=== PATIENT | female | born 1970 | race Caucasian/White ===

== ENCOUNTER 2017-11-01 10:02 | Emergency (ER) | payer OTHER ==
[~2017-11-01] VITALS: Ht 152.4 cm; Wt 99.8 kg
[~2017-11-01 10:02] MED LIST: AMBIEN5 MG PO; DICYCLOMINE HCL10 MG PO; ESTRADIOL1 MG PO; OXYBUTYNIN CHLOR5 MG PO; PRISTIQ ER50 MG PO; PROGESTERONE100 MG PO; RANITIDINE HCL300 M1 PO; TIZANIDINE HCL4 M1 PO; XANAX0.5 MG PO
[2017-11-01 11:16] LABS: BASOPHILS % 0.6 % (0.0-1.0); EOSINOPHILS # (AUTO) 0.2 (0.0-0.4); EOSINOPHILS % 2.8 % (0.0-6.0); HEMOGLOBIN 13.4 g/dL (12.0-16.0); LYMPHOCYTES # (AUTO) 1.7 (1.0-3.2); LYMPHOCYTES % 23.2 % (18.0-39.1); MEAN CORPUSCULAR HEMOGLOBIN 29.7 pg (28-32); MEAN CORPUSCULAR HGB CONC 32.7 g/dL (31-35); MEAN CORPUSCULAR VOLUME 90.9 fL (81-99); MONOCYTES # (AUTO) 0.4 (0.2-0.8); MONOCYTES % 5.9 % (4.4-11.3); NEUTROPHILS # (AUTO) 4.9 (2.1-6.9); NEUTROPHILS % 67.1 % (38.7-80.0); PLATELET COUNT 255 x10e3/uL (140-360); RED BLOOD COUNT 4.51 x10e6/uL (3.6-5.1)
[2017-11-01 11:35] LABS: ALANINE AMINOTRANSFERASE 22 IU/L (0-55); ALBUMIN 3.6 g/dL (3.5-5.0); ALKALINE PHOSPHATASE 113 IU/L (40-150); ANION GAP 12.9 mmol/L (8-16); BLOOD UREA NITROGEN 17 mg/dL (7-26); BUN/CREATININE RATIO 16 (6-25); CALCIUM 8.7 mg/dL (8.4-10.2); CARBON DIOXIDE 23 mmol/L (22-29); CHLORIDE 109 mmol/L (98-107); CREATINE KINASE 48 IU/L (29-168); CREATININE, SERUM 1.04 mg/dL (0.57-1.11); EST GLOMERULAR FILTRATION RATE 57 ML/MIN (60-); GLUCOSE 109 mg/dL (74-118); POTASSIUM 3.9 mmol/L (3.5-5.1); SODIUM 141 mmol/L (136-145)
--- NOTE | 2017-11-01 11:47 | Diagnostic Imaging Report ---
EXAMINATION: CHEST SINGLE (PORTABLE) INDICATION: \[id number] \S\[id number] \S\RBTO PER DR HERNÁNDEZ PORTABLE CHEST X RAY COMPARISON: Chest radiograph on 03/31/2008 FINDINGS: AP view TUBES and LINES: None. LUNGS: Low lung volumes. Bibasilar atelectasis. There is no evidence of pneumonia or pulmonary edema. PLEURA: No pleural effusion or pneumothorax. HEART AND MEDIASTINUM: The cardiomediastinal silhouette is unremarkable.. BONES AND SOFT TISSUES: No acute osseous lesion. Soft tissues are unremarkable. UPPER ABDOMEN: No free air under the diaphragm. IMPRESSION: Low lung volumes with associated bibasilar atelectasis. Recommend follow-up PA and lateral chest x-ray when feasible. Signed by: Dr. Farnaz Kessler M.D. on 11/01/2017 11:44 AM
[2017-11-01] MEDS ORDERED: SODIUM CHLORIDE 0.9% 1000ML 1,000 ML IV STA (11:53)
[2017-11-01 11:55] LABS: THYROID STIMULATING HORMONE 0.781 uIU/mL (0.350-4.940)
[2017-11-01] MEDS ORDERED: HYDROCODONE/APAP 10MG-325MG TAB PO NR (12:30)
--- NOTE | 2017-11-01 12:41 | Diagnostic Imaging Report ---
History: Confusion, slurred speech Comparison studies: None Technique: Axial images were obtained from the skull base to the vertex. Coronal and sagittal reconstructions obtained from the axial data. Findings: Scalp/skull: No abnormalities. No fractures, blastic or lytic lesions. Extra-axial spaces: No masses. No fluid collections. Brain sulci: Appropriate for age. Ventricles: Normal in size and configuration. No hydrocephalus. Parenchyma: No abnormal densities. No masses, hemorrhage, acute or chronic cortical vascular insults. Sellar/suprasellar region: No abnormalities Craniocervical junction: Patent foramen magnum. No Chiari one malformation. IMPRESSION: No acute abnormalities. Signed by: DR Ga Solorio M.D. on 11/01/2017 12:38 PM
[2017-11-01] MEDS ORDERED: KETOROLAC TROMETHAMINE 30 MG/ML VIAL IV STA (12:42)
[2017-11-01 13:42] VITALS: BP 88/59
== END 2017-11-01 13:45 | disposition home or self-care (01) ==
LOC: ER 10:02
DX: R47.9 Unspecified speech disturbances (principal); F31.9 Bipolar disorder, unspecified; M54.9 Dorsalgia, unspecified; G89.29 Other chronic pain
CPT/HCPCS: 36415; 70450; 71045; 80053; 82550; 82553; 84443; 84484; 85025; 93005; 99284; J1885; J7030